=== PATIENT | female | born 1995 | race Caucasian/White ===

== ENCOUNTER 2019-12-18 22:29 | Emergency (ER) | payer OTHER ==
[~2019-12-18] VITALS: Ht 167.6 cm; Wt 65.8 kg
[~2019-12-18 22:29] MED LIST: CLEOCIN HCL150 M1 PO; HYDROCODON-ACE1 EAC7 PO; HYDROCODONE-AP1 EAC6 PO; MEDROLDOSEPACK PO; NORCO 5-325 TA1 EAC1 PO; NORCO 5-325 TA1 EACH PO; OMEPRAZOLE 20 M20 MG PO; ONDANSETRON HCL4 M2 PO; PRENATAL MULTI1 EAC2 PO; VENTOLIN HFA 1818 GM INH; ZPAK PO
[2019-12-18 22:38] VITALS: BP 136/75
[2019-12-18] MEDS ORDERED: RISPERDAL2 MG PO (22:48)
[2019-12-18] MEDS ORDERED: CLONAZEPAM0.5 MG PO (22:49)
[2019-12-18] MEDS ORDERED: ANTIDEPRESSANT (22:49)
[2019-12-18] MEDS ORDERED: RISPERDAL 1 MG T1 MG PO (23:04)
[2019-12-18] MEDS ORDERED: CLONAZEPAM 0.50.5 M1 PO (23:04)
== END 2019-12-18 23:11 | disposition home or self-care (01) ==
LOC: M.ERS 22:29
DX: F20.9 Schizophrenia, unspecified (principal); F32.9 Major depressive disorder, single episode, unspecified; Z76.0 Encounter for issue of repeat prescription; K08.89 Other specified disorders of teeth and supporting structures; Z88.1 Allergy status to other antibiotic agents

== ENCOUNTER 2020-01-02 13:46 | Emergency (ER) | payer OTHER, MEDICAID ==
[~2020-01-02] VITALS: Ht 167.6 cm; Wt 68.0 kg
[~2020-01-02 13:46] MED LIST changes: +ANTIDEPRESSANT; +CLONAZEPAM 0.50.5 M1 PO; +CLONAZEPAM0.5 MG PO; +RISPERDAL 1 MG T1 MG PO; +RISPERDAL2 MG PO
[2020-01-02] MEDS ORDERED: SEROQUEL XR1 EACH PO (13:55)
[2020-01-02] MEDS ORDERED: NEURONTIN 400M400 M2 PO (13:55)
[2020-01-02] MEDS ORDERED: RISPERDAL 3 MG T3 M1 PO ×2 (13:59→14:11)
[2020-01-02] MEDS ORDERED: MELOXICAM7.5 MG PO (14:10)
[2020-01-02] MEDS ORDERED: CLONAZEPAM 0.50.5 M1 PO (14:10)
[2020-01-02 14:23] VITALS: BP 130/96
== END 2020-01-02 14:23 | disposition home or self-care (01) ==
LOC: M.ERS 13:46
DX: Z76.0 Encounter for issue of repeat prescription (principal); M06.9 Rheumatoid arthritis, unspecified; F32.9 Major depressive disorder, single episode, unspecified; F41.9 Anxiety disorder, unspecified; F20.9 Schizophrenia, unspecified; Z88.1 Allergy status to other antibiotic agents

== ENCOUNTER 2020-01-10 12:02 | Emergency (ER) | payer OTHER ==
[~2020-01-10] VITALS: Ht 167.6 cm; Wt 68.0 kg
[~2020-01-10 12:02] MED LIST changes: +MELOXICAM7.5 MG PO; +NEURONTIN 400M400 M2 PO; +RISPERDAL 3 MG T3 M1 PO; +SEROQUEL XR1 EACH PO
[2020-01-10 13:14] LABS: URINE BILIRUBIN NEGATIVE (Negative); URINE BLOOD NEGATIVE (Negative); URINE CLARITY CLEAR; URINE COLOR YELLOW; URINE GLUCOSE-RANDOM NEGATIVE (Negative); URINE KETONES NEGATIVE (Negative); URINE LEUKOCYTES-REFLEX NEGATIVE (Negative); URINE NITRITE-REFLEX NEGATIVE (Negative); URINE PROTEIN NEGATIVE (Negative); URINE UROBILINOGEN 0.2 E.U./dl (0.2-1.0)
[2020-01-10] MEDS ORDERED: ZANAFLEX4 MG PO (13:49)
[2020-01-10 15:34] VITALS: BP 110/72
== END 2020-01-10 15:34 | disposition home or self-care (01) ==
LOC: M.ERS 12:02
PROVIDERS: Nurse Practitioner Family
DX: S16.1XXA Strain of muscle, fascia and tendon at neck level, initial encounter (principal); S29.012A Strain of muscle and tendon of back wall of thorax, initial encounter; S80.01XA Contusion of right knee, initial encounter; M79.7 Fibromyalgia; M06.9 Rheumatoid arthritis, unspecified; F32.9 Major depressive disorder, single episode, unspecified; F41.9 Anxiety disorder, unspecified; F20.9 Schizophrenia, unspecified; F17.210 Nicotine dependence, cigarettes, uncomplicated; Z88.1 Allergy status to other antibiotic agents; V89.2XXA Person injured in unspecified motor-vehicle accident, traffic, initial encounter; Y93.89 Activity, other specified; Y92.89 Other specified places as the place of occurrence of the external cause; Y99.8 Other external cause status